=== PATIENT | female | born 1950 | race Caucasian/White ===

== ENCOUNTER 2023-02-02 08:51 | Outpatient (CLI) | payer MEDICARE | END 2023-02-02 08:52 | disposition home or self-care (01) | LOC: CSHWCC 08:51 | PROVIDERS: ATTEND Nurse Practitioner Family | DX: S81.002D Unspecified open wound, left knee, subsequent encounter (principal) | CPT/HCPCS: 11042; 97139; G0463; 99203 ==

== ENCOUNTER 2023-02-09 11:45 | Outpatient (CLI) | payer MEDICARE | END 2023-02-09 11:46 | disposition home or self-care (01) | LOC: CSHWCC 11:45 | PROVIDERS: ATTEND Nurse Practitioner Family | DX: S81.002D Unspecified open wound, left knee, subsequent encounter (principal) | CPT/HCPCS: 97607 ==

== ENCOUNTER 2023-02-16 08:03 | Outpatient (CLI) | payer MEDICARE | END 2023-02-16 08:04 | disposition home or self-care (01) | LOC: CSHWCC 08:03 | PROVIDERS: ATTEND Nurse Practitioner Family | DX: S81.002D Unspecified open wound, left knee, subsequent encounter (principal) | CPT/HCPCS: 11042; 87070; 87205; 97605 ==

== ENCOUNTER 2023-02-20 10:07 | Outpatient (CLI) | payer MEDICARE | END 2023-02-20 10:08 | disposition home or self-care (01) | LOC: CSHWCC 10:07 | PROVIDERS: ATTEND Nurse Practitioner Family | DX: S81.002D Unspecified open wound, left knee, subsequent encounter (principal) | CPT/HCPCS: 87070; 87205; 97605 ==

== ENCOUNTER 2023-03-02 09:20 | Outpatient (CLI) | payer MEDICARE | END 2023-03-02 09:21 | disposition home or self-care (01) | LOC: CSHWCC 09:20 | PROVIDERS: ATTEND Nurse Practitioner Family | DX: S81.002D Unspecified open wound, left knee, subsequent encounter (principal) | CPT/HCPCS: 97597; 97605 ==

== ENCOUNTER 2023-03-05 09:26 | Outpatient (CLI) | payer MEDICARE | END 2023-03-05 09:27 | disposition home or self-care (01) | LOC: CSHWCC 09:26 | PROVIDERS: ATTEND Nurse Practitioner Family | DX: S81.002D Unspecified open wound, left knee, subsequent encounter (principal) | CPT/HCPCS: 97605 ==

== ENCOUNTER 2023-03-30 08:00 | Outpatient (CLI) | payer MEDICARE | END 2023-03-30 08:01 | disposition home or self-care (01) | LOC: CSHWCC 08:00 | PROVIDERS: ATTEND Physician Assistant | DX: S81.002D Unspecified open wound, left knee, subsequent encounter (principal) | CPT/HCPCS: 97605 ==

== ENCOUNTER 2023-04-02 08:58 | Outpatient (CLI) | payer MEDICARE | END 2023-04-02 08:59 | disposition home or self-care (01) | LOC: CSHWCC 08:58 | PROVIDERS: ATTEND Preventive Medicine Undersea and Hyperbaric Medicine | DX: S81.002D Unspecified open wound, left knee, subsequent encounter (principal) | CPT/HCPCS: 99211; G0463 ==

== ENCOUNTER 2023-04-03 08:53 | Outpatient (CLI) | payer MEDICARE | END 2023-04-03 08:54 | disposition home or self-care (01) | LOC: CSHWCC 08:53 | PROVIDERS: ATTEND Preventive Medicine Undersea and Hyperbaric Medicine | DX: S81.002D Unspecified open wound, left knee, subsequent encounter (principal) | CPT/HCPCS: 97602 ==

== ENCOUNTER 2023-04-04 15:53 | Outpatient (CLI) | payer MEDICARE | END 2023-04-04 15:54 | disposition home or self-care (01) | LOC: CSHWCC 15:53 | PROVIDERS: ATTEND Preventive Medicine Undersea and Hyperbaric Medicine | DX: S81.002D Unspecified open wound, left knee, subsequent encounter (principal) | CPT/HCPCS: 97605 ==

== ENCOUNTER 2023-04-12 10:42 | Outpatient (CLI) | payer MEDICARE | END 2023-04-12 10:43 | disposition home or self-care (01) | LOC: CSHWCC 10:42 | PROVIDERS: ATTEND Physician Assistant | DX: T81.31XD Disruption of external operation (surgical) wound, not elsewhere classified, subsequent encounter (principal) | CPT/HCPCS: 97597; 97605 ==

== ENCOUNTER 2023-04-17 09:05 | Outpatient (CLI) | payer MEDICARE | END 2023-04-17 09:06 | disposition home or self-care (01) | LOC: CSHWCC 09:05 | PROVIDERS: ATTEND Physician Assistant | DX: T81.31XD Disruption of external operation (surgical) wound, not elsewhere classified, subsequent encounter (principal) | CPT/HCPCS: 97605 ==

== ENCOUNTER 2023-04-20 08:11 | Outpatient (CLI) | payer MEDICARE | END 2023-04-20 08:12 | disposition home or self-care (01) | LOC: CSHWCC 08:11 | PROVIDERS: ATTEND Physician Assistant | DX: T81.32XD Disruption of internal operation (surgical) wound, not elsewhere classified, subsequent encounter (principal) | CPT/HCPCS: 97605 ==

== ENCOUNTER 2023-07-26 19:45 | Inpatient (IN) | payer MEDICARE ==
[2023-07-26 21:30] VITALS: BMI 21.3
[2023-07-26] MEDS ORDERED: Hydrocodone-Acetamin 15 ML UDCUP PO PRN (21:59)
[2023-07-26] MEDS: LevoFLOXacin 750 mg/D5W 750 MG in Premix 1 BAG IVPB SCH (23:06)
[2023-07-27] MEDS: Ipratropium/Albuterol 3 ML NEB NEB SCH (01:30)
[2023-07-27] MEDS: Acetaminophen 325 MG TAB PO PRN (03:16)
[2023-07-27 04:15] LABS: #Eosinphils 0.6 10x3/uL (0.0-0.5); #Monocytes 0.8 10x3/uL (0.0-1.1); #Neutrophils 9.2 10x3/uL (1.5-8.4); %Basophils 0.2 % (0.0-2.0); %Eosinophils 4.5 % (0.0-6.0); %Monocytes 6.6 % (0.0-10.0); %Neutrophils 73.4 % (40.0-75.0); Hematocrit 26.9 % (34.9-44.5); Hemoglobin 9.4 g/dL (12.0-15.5); Mean Corpuscular HGB CONC 34.9 g/dL (32.0-36.0); Mean Corpuscular Hemoglobin 28.5 pg (27.0-33.0); Mean Corpuscular Volume 81.5 fl (81.6-98.3); Mean Platelet Volume 9.4 fl (7.4-10.4); Platelet Count 370 10x3/uL (150-450); RBC Distribution Width 13.6 % (11.5-14.5); White Blood Cell (WBC) Count 12.6 10x3/uL (3.5-10.5)
[2023-07-27 04:34] LABS: Anion Gap 14 mmol/L (10-20); BUN (Urea Nitrogen) 19 mg/dL (9.8-20.1); Calc. Creatinine Clearance 54 mL/min (70-130); Calcium 7.9 mg/dL (7.8-10.44); Carbon Dioxide 17 mmol/L (23-31); Chloride 106 mmol/L (98-107); Estimated GFR 71; Glucose 108 mg/dL (83-110); Potassium 3.2 mmol/L (3.5-5.1); Sodium 134 mmol/L (136-145)
[2023-07-27 05:44] LABS: Legionella Urinary Ag Negative (Negative); Strep pneumo Urine Ag NEGATIVE (NEGATIVE)
[2023-07-27] MEDS: Levothyroxine Sodium 50 MCG TAB PO SCH (06:04)
[2023-07-27] MEDS: Trospium 20 MG TAB PO SCH (08:53)
[2023-07-27] MEDS: Meropenem 1 GM in Sodium Chloride 0.9% 100 ML IVPB SCH (08:59)
[2023-07-27] MEDS ORDERED: Enoxaparin 40 MG (0.4 mL) SYRINGE SC SCH (09:00)
[2023-07-27] MEDS ORDERED: Ipratropium/Albuterol 3 ML NEB NEB PRN (12:15)
[2023-07-27] MEDS ORDERED: Electrolyte Replacement Protocol 1 EACH FS SCH (12:15)
[2023-07-27] MEDS: Mometasone 100 MCG/PUFF (1 INHALER) INH SCH (12:30)
[2023-07-27 13:43] LABS: Magnesium 2.2 mg/dL (1.6-2.6)
[2023-07-27] MEDS: Potassium Chloride 20 MEQ TAB PO SCH (15:38)
[2023-07-27] MEDS: SODIUM CHLORIDE IVPB SCH (19:12)
[2023-07-27] MEDS: DAPTOMYCIN IVPB SCH (19:12)
[2023-07-27] MEDS: ADMIXTURE FEE IVPB SCH (19:12)
[2023-07-28 05:03] LABS: #Eosinphils 0.8 10x3/uL (0.0-0.5); #Monocytes 0.9 10x3/uL (0.0-1.1); #Neutrophils 9.6 10x3/uL (1.5-8.4); %Basophils 0.2 % (0.0-2.0); %Eosinophils 5.8 % (0.0-6.0); %Lymphocytes 13.7 % (18.0-47.0); %Monocytes 7.1 % (0.0-10.0); %Neutrophils 72.8 % (40.0-75.0); Hematocrit 27.9 % (34.9-44.5); Hemoglobin 9.6 g/dL (12.0-15.5); Mean Corpuscular HGB CONC 34.4 g/dL (32.0-36.0); Mean Corpuscular Volume 81.3 fl (81.6-98.3); Mean Platelet Volume 9.4 fl (7.4-10.4); Platelet Count 387 10x3/uL (150-450); RBC Distribution Width 13.7 % (11.5-14.5); Red Blood Cell (RBC) Count 3.43 10x6/uL (3.90-5.03); White Blood Cell (WBC) Count 13.2 10x3/uL (3.5-10.5)
[2023-07-28 05:14] LABS: Anion Gap 12 mmol/L (10-20); BUN (Urea Nitrogen) 13 mg/dL (9.8-20.1); Calc. Creatinine Clearance 57 mL/min (70-130); Carbon Dioxide 19 mmol/L (23-31); Chloride 106 mmol/L (98-107); Estimated GFR 76; Glucose 98 mg/dL (83-110); Sodium 133 mmol/L (136-145)
[2023-07-29 05:56] LABS: #Eosinphils 1.4 10x3/uL (0.0-0.5); #Monocytes 0.9 10x3/uL (0.0-1.1); #Neutrophils 10.8 10x3/uL (1.5-8.4); %Basophils 0.2 % (0.0-2.0); %Eosinophils 8.9 % (0.0-6.0); %Lymphocytes 14.1 % (18.0-47.0); %Monocytes 5.9 % (0.0-10.0); %Neutrophils 70.5 % (40.0-75.0); Hematocrit 31.2 % (34.9-44.5); Hemoglobin 10.7 g/dL (12.0-15.5); Mean Corpuscular HGB CONC 34.3 g/dL (32.0-36.0); Mean Corpuscular Hemoglobin 27.8 pg (27.0-33.0); Mean Platelet Volume 9.5 fl (7.4-10.4); Platelet Count 510 10x3/uL (150-450); RBC Distribution Width 13.9 % (11.5-14.5); Red Blood Cell (RBC) Count 3.85 10x6/uL (3.90-5.03); White Blood Cell (WBC) Count 15.3 10x3/uL (3.5-10.5)
[2023-07-29 06:02] LABS: Anion Gap 13 mmol/L (10-20); BUN (Urea Nitrogen) 15 mg/dL (9.8-20.1); Calc. Creatinine Clearance 60 mL/min (70-130); Calcium 8.4 mg/dL (7.8-10.44); Carbon Dioxide 20 mmol/L (23-31); Chloride 105 mmol/L (98-107); Estimated GFR 81; Glucose 100 mg/dL (83-110); Potassium 3.9 mmol/L (3.5-5.1); Sodium 134 mmol/L (136-145)
[2023-07-29 06:29] LABS: CRP (Inflammatory) 29.84 mg/dL (= or < 0.5)
[2023-07-29] MEDS: Doxycycline 100 MG in Sodium Chloride 0.9% 100 ML IVPB SCH (08:59)
[2023-07-29] MEDS: Senokot S 8.6-50 MG TAB PO PRN (20:34)
[2023-07-30 04:55] LABS: #Eosinphils 1.5 10x3/uL (0.0-0.5); #Monocytes 0.8 10x3/uL (0.0-1.1); #Neutrophils 7.2 10x3/uL (1.5-8.4); %Basophils 0.3 % (0.0-2.0); %Eosinophils 13.3 % (0.0-6.0); %Lymphocytes 15.7 % (18.0-47.0); %Monocytes 7.2 % (0.0-10.0); %Neutrophils 63.1 % (40.0-75.0); Hematocrit 28.5 % (34.9-44.5); Hemoglobin 9.9 g/dL (12.0-15.5); Mean Corpuscular HGB CONC 34.7 g/dL (32.0-36.0); Mean Corpuscular Volume 80.5 fl (81.6-98.3); Mean Platelet Volume 9.5 fl (7.4-10.4); Platelet Count 478 10x3/uL (150-450); Red Blood Cell (RBC) Count 3.54 10x6/uL (3.90-5.03); White Blood Cell (WBC) Count 11.4 10x3/uL (3.5-10.5)
[2023-07-30 04:57] LABS: Anion Gap 11 mmol/L (10-20); BUN (Urea Nitrogen) 14 mg/dL (9.8-20.1); Calc. Creatinine Clearance 61 mL/min (70-130); Calcium 8.3 mg/dL (7.8-10.44); Carbon Dioxide 23 mmol/L (23-31); Chloride 107 mmol/L (98-107); Estimated GFR 82; Glucose 100 mg/dL (83-110); Potassium 4.1 mmol/L (3.5-5.1); Sodium 137 mmol/L (136-145)
[2023-07-30] MEDS: Benzocaine/Menthol 1 LOZ LOZ PO PRN (17:39)
[2023-07-30] MEDS: Phenol 177 ML BOT PO PRN (22:02)
[2023-07-31 04:24] LABS: #Eosinphils 1.3 10x3/uL (0.0-0.5); #Monocytes 1.1 10x3/uL (0.0-1.1); #Neutrophils 6.6 10x3/uL (1.5-8.4); %Basophils 0.4 % (0.0-2.0); %Eosinophils 11.9 % (0.0-6.0); %Lymphocytes 18.1 % (18.0-47.0); %Monocytes 9.5 % (0.0-10.0); %Neutrophils 59.7 % (40.0-75.0); Hematocrit 27.8 % (34.9-44.5); Hemoglobin 9.3 g/dL (12.0-15.5); Mean Corpuscular HGB CONC 33.5 g/dL (32.0-36.0); Mean Corpuscular Hemoglobin 27.1 pg (27.0-33.0); Mean Platelet Volume 9.1 fl (7.4-10.4); Platelet Count 459 10x3/uL (150-450); RBC Distribution Width 14.1 % (11.5-14.5); Red Blood Cell (RBC) Count 3.43 10x6/uL (3.90-5.03); White Blood Cell (WBC) Count 11.1 10x3/uL (3.5-10.5)
[2023-07-31 04:39] LABS: Anion Gap 10 mmol/L (10-20); BUN (Urea Nitrogen) 12 mg/dL (9.8-20.1); Calc. Creatinine Clearance 61 mL/min (70-130); Calcium 8.3 mg/dL (7.8-10.44); Carbon Dioxide 24 mmol/L (23-31); Chloride 107 mmol/L (98-107); Estimated GFR 82; Glucose 101 mg/dL (83-110); Potassium 3.6 mmol/L (3.5-5.1); Sodium 137 mmol/L (136-145)
[2023-07-31] MEDS: predniSONE 20 MG TAB PO SCH (08:44)
[2023-07-31] MEDS: Ipratropium/Albuterol 3 ML NEB NEB SCH (13:17)
[2023-08-01 05:53] LABS: #Eosinphils 0.3 10x3/uL (0.0-0.5); #Monocytes 0.8 10x3/uL (0.0-1.1); #Neutrophils 8.5 10x3/uL (1.5-8.4); %Basophils 0.3 % (0.0-2.0); %Eosinophils 2.6 % (0.0-6.0); %Lymphocytes 20.4 % (18.0-47.0); %Monocytes 6.9 % (0.0-10.0); %Neutrophils 69.2 % (40.0-75.0); Hematocrit 25.3 % (34.9-44.5); Hemoglobin 8.8 g/dL (12.0-15.5); Mean Corpuscular HGB CONC 34.8 g/dL (32.0-36.0); Mean Corpuscular Hemoglobin 28.3 pg (27.0-33.0); Mean Corpuscular Volume 81.4 fl (81.6-98.3); Mean Platelet Volume 9.1 fl (7.4-10.4); Platelet Count 427 10x3/uL (150-450); RBC Distribution Width 14.2 % (11.5-14.5); Red Blood Cell (RBC) Count 3.11 10x6/uL (3.90-5.03); White Blood Cell (WBC) Count 12.2 10x3/uL (3.5-10.5)
[2023-08-01 06:06] LABS: Anion Gap 13 mmol/L (10-20); BUN (Urea Nitrogen) 15 mg/dL (9.8-20.1); Calc. Creatinine Clearance 63 mL/min (70-130); Calcium 8.3 mg/dL (7.8-10.44); Carbon Dioxide 22 mmol/L (23-31); Chloride 107 mmol/L (98-107); Estimated GFR 86; Glucose 105 mg/dL (83-110); Potassium 3.3 mmol/L (3.5-5.1); Sodium 139 mmol/L (136-145)
[2023-08-01] MEDS ORDERED: Lidocaine 1% PF 5 ML VIAL ONE ×2 (08:14→10:00)
[2023-08-01] MEDS: predniSONE 20 MG TAB PO SCH (08:21)
[2023-08-01] MEDS: Potassium Chloride 20 MEQ TAB PO SCH (08:22)
[2023-08-01] MEDS ORDERED: Sodium Bicarbonate 2.5 MEQ/5 ML SDV ONE (10:01)
[2023-08-01] MEDS: Potassium Bicarbonate/Cit Ac 20 MEQ TAB PO SCH (12:49)
[2023-08-01 14:27] LABS: Potassium 4.4 mmol/L (3.5-5.1)
[2023-08-02 04:13] LABS: #Basophils 0.1 10x3/uL (0.0-0.2); #Eosinphils 0.2 10x3/uL (0.0-0.5); #Monocytes 0.8 10x3/uL (0.0-1.1); #Neutrophils 10.6 10x3/uL (1.5-8.4); %Basophils 0.3 % (0.0-2.0); %Eosinophils 1.2 % (0.0-6.0); %Lymphocytes 21.6 % (18.0-47.0); %Monocytes 5.4 % (0.0-10.0); %Neutrophils 70.9 % (40.0-75.0); Hematocrit 27.3 % (34.9-44.5); Hemoglobin 9.1 g/dL (12.0-15.5); Mean Corpuscular HGB CONC 33.3 g/dL (32.0-36.0); Mean Corpuscular Hemoglobin 27.2 pg (27.0-33.0); Mean Corpuscular Volume 81.5 fl (81.6-98.3); Mean Platelet Volume 9.5 fl (7.4-10.4); Platelet Count 450 10x3/uL (150-450); RBC Distribution Width 14.4 % (11.5-14.5); Red Blood Cell (RBC) Count 3.35 10x6/uL (3.90-5.03); White Blood Cell (WBC) Count 14.9 10x3/uL (3.5-10.5)
[2023-08-02 04:28] LABS: Anion Gap 17 mmol/L (10-20); BUN (Urea Nitrogen) 12 mg/dL (9.8-20.1); Calc. Creatinine Clearance 66 mL/min (70-130); Calcium 8.5 mg/dL (7.8-10.44); Carbon Dioxide 20 mmol/L (23-31); Chloride 107 mmol/L (98-107); Estimated GFR 90; Glucose 101 mg/dL (83-110); Sodium 139 mmol/L (136-145)
[2023-08-02 08:42] VITALS: BP 129/59; TEMP 97.9
== END 2023-08-02 13:03 | disposition home or self-care (01) | DRG 871 ==
LOC: CSHTELE 19:45 → OBSVTOIN 21:41
PROVIDERS: ADMIT Family Medicine; ATTEND Hospitalist
PROC: 02HV33Z Insertion of Infusion Device into Superior Vena Cava, Percutaneous Approach (ICD-10-PCS; principal; 2023-08-01)
PROC: B5181ZA Fluoroscopy of Superior Vena Cava using Low Osmolar Contrast, Guidance (ICD-10-PCS; 2023-08-01)
PROC: 3E04329 Introduction of Other Anti-infective into Central Vein, Percutaneous Approach (ICD-10-PCS; 2023-08-01)
PROC: B548ZZA Ultrasonography of Superior Vena Cava, Guidance (ICD-10-PCS; 2023-08-01)
DX: A41.9 Sepsis, unspecified organism (principal); J18.9 Pneumonia, unspecified organism; J96.01 Acute respiratory failure with hypoxia; T81.49XA Infection following a procedure, other surgical site, initial encounter; J44.1 Chronic obstructive pulmonary disease with (acute) exacerbation; E03.9 Hypothyroidism, unspecified; Z96.652 Presence of left artificial knee joint; Z79.899 Other long term (current) drug therapy; Z90.89 Acquired absence of other organs; Z98.49 Cataract extraction status, unspecified eye; Z98.890 Other specified postprocedural states; Z87.891 Personal history of nicotine dependence; Z82.49 Family history of ischemic heart disease and other diseases of the circulatory system; Z11.52 Encounter for screening for COVID-19
CPT/HCPCS: 36415; 36569; 71046; 80048; 82550; 83735; 84145; 85025; 86140; 87449; 87635; 87899; 94640; 94664; 94760; 94762; 97139; C1751; J0878; J1956; J2185; J3490; J7512; J7620